=== PATIENT | male | born 1960 | race Caucasian/White ===

== ENCOUNTER → 2021-05-05 09:01 | Outpatient (BNVA) | payer MEDICARE, SELFPAY | PROVIDERS: Family Provider Internal Medicine; PCP Nurse Practitioner; Visit Provider Nurse Practitioner | DX: I10 Essential (primary) hypertension (principal) | CPT/HCPCS: 80053; 80061; 85025 ==

== ENCOUNTER → 2021-06-08 14:29 | Outpatient (BNVA) | payer MEDICARE, SELFPAY | PROVIDERS: Family Provider Internal Medicine; PCP Nurse Practitioner; Visit Provider Nurse Practitioner Family | DX: R11.2 Nausea with vomiting, unspecified (principal) | CPT/HCPCS: 87635 ==

== ENCOUNTER 2021-08-06 14:14 | Emergency (ER) | payer MEDICARE, SELFPAY ==
[2021-08-06 14:42] VITALS: BP 184/96; PULSE 49; RESP 16; TEMP 36.4; O2SAT 98; BMI 26.3
--- NOTE | 2021-08-06 14:53 | ECG_ITS ---
[facility] Test Date: 2021-08-06 Pat Name: Declan Campuzano Department: Room: Gender: Male Vacuum Caster: : 1960 Requested By: Nicola Mathew Order Number: [id number] Ronnie MD: Melissa Cox M.D. Measurements Intervals [place] Rate: 52 P: 12 MD: 171 QRS: 19 QRSD: 110 T: 61 QT: 456 QTc: 428 Interpretive Statements SINUS BRADYCARDIA No previous ECG available for comparison Electronically Signed On 08-07-2021 12:09:23 MANAGER ENGINE by Melissa Cox M.D. [id number]
--- NOTE | 2021-08-06 14:53 | XRR_ITS ---
PROCEDURE INFORMATION: Exam: XR Chest Exam date and time: 08/06/2021 2:53 PM Age: 60 years old Clinical indication: Cough and dyspnea; Additional info: Dyspnea/cough TECHNIQUE: Imaging protocol: XR of the chest. Views: 1 view. COMPARISON: No relevant prior studies available. FINDINGS: Lungs: Curvilinear scarring noted at the peripheral left lung base. No consolidation. Pleural spaces: Unremarkable. No pleural effusion. No pneumothorax. Heart/Mediastinum: Unremarkable. No cardiomegaly. Bones/joints: Unremarkable. XR/XR chest 1V portable [id number] IMPRESSION: No acute findings.
[2021-08-06 15:13] LABS: Basophils % 0.2 %; Eosinophils % 0.1 %; Hematocrit 43.6 % (42.0-52.0); Hemoglobin 14.1 g/dL (11.7-16.6); Lymphocytes # 0.8 10^3/uL (0.8-4.8); Lymphocytes % 7.9 %; Mean Corpuscular HGB Conc 32.3 g/dL (30.0-36.0); Mean Corpuscular Hemoglobin 31.2 pg (28.0-34.0); Mean Corpuscular Volume 96.5 fl (80-94); Mean Platelet Volume 10.3 fL (7.4-10.4); Monocytes # 0.3 10^3/uL (0.2-0.9); Monocytes % 3.5 %; Neutrophils # 8.31 10^3/uL (1.8-7.7); Neutrophils % 88.1 %; Nucleated Red Blood Cells % 0 %; Platelet Count 229 10^3/cmm (130-400); Red Blood Count 4.52 10^6/uL (4.1-5.3); White Blood Count 9.4 10^3/uL (4.0-10.0)
--- NOTE | 2021-08-06 15:35 | CTR_ITS ---
PROCEDURE INFORMATION: Exam: CT Head Without Contrast Exam date and time: 08/06/2021 3:35 PM Age: 60 years old Clinical indication: Headache not specified; Patient HX: Pain behind right eye x 3 weeks; Additional info: Vision changes headache TECHNIQUE: Imaging protocol: Computed tomography of the head without contrast. Radiation optimization: All CT scans at this facility use at least one of these dose optimization techniques: automated exposure control; mA and/or kV adjustment per patient size (includes targeted exams where dose is matched to clinical indication); or iterative reconstruction. COMPARISON: No relevant prior studies available. RADIATION DOSE METRICS: Total DLP (mGy-cm): 975.08 FINDINGS: Brain: Normal. No hemorrhage. Unremarkable white matter. No mass effect. Cerebral ventricles: No ventriculomegaly. Paranasal sinuses: Trace fluid in the left maxillary sinus. The rest of the paranasal sinuses are well pneumatized. Mastoid air cells: Visualized mastoid air cells are well aerated. Orbital cavity: Asymmetric preseptal soft tissue thickening seen the anterior to the right globe. Retro-orbital fat is preserved. Diminutive appearance of the lens of the right globe. Bones/joints: Unremarkable. No acute fracture. Soft tissues: Unremarkable. CT/CT head wo con* [id number] IMPRESSION: 1. No acute intracranial abnormality. 2. Right-sided preseptal cellulitis. The lens of the right globe is also diminutive in appearance. Correlate with any prior surgical procedures/ophthalmology evaluation.
--- NOTE | 2021-08-06 15:35 | ED_ITS ---
HPI - General Adult General: Chief complaint: General Medical Stated complaint: HBP Headache, V, nausia Time Seen by Provider: 08/06/21 14:49 History of Present Illness: 60-year-old male presents emergency room with complaints of elevated blood pressure and headache. Has had this for the last 3 weeks. He is complaining of a headache 10 of 10 at this time. Complaining of chills vomiting exhaustion as well. Is not had any shortness of breath no dysuria urgency or frequency no diarrhea. No hematochezia melena hematemesis coffee-ground emesis no chest pain. Reviewing his medication list he is on valsartan at a maximum dose no other medications. Onset (ago): day(s) Location: head Severity: moderate Relieving factors: none Exacerbating factors: none Associated symptoms: Deny chest pain, confusion, cough, diaphoresis, decreased appetite, dyspnea, fevers/chills, headache(s), malaise, nausea, rash, palp itations, seizures, short of breath, syncope, vomiting or weakness Treatments prior to arrival: none Review of Systems Const: Denies: malaise or diaphoresis ENMT: Denies: throat pain, ear or mastoid pain, nasal discharge or nasal congestion Card: Denies: chest pain, palpitations or syncope Resp: Denies: dyspnea GI: Denies: nausea or vomiting : Denies: flank pain, dysuria, urinary frequency or urinary urgency Skin/Breast: Denies: rash Neuro: Denies: headache(s) or confusion PFSH ED PFSH: Medical History Essential hypertension History of cigarette smoking History of COVID-19 2019 History of [place] spotted fever 2019 Hyperlipidemia, mixed Situational anxiety Tobacco dependence due to chewing tobacco Surgical History History of colonoscopy over ten years ago History of oral surgery all teeth removed Family History Mother Dementia Stroke Sister Diabetes Hypertension Cancer Brother Diabetes Father Cancer Denies family history of CAD (coronary artery disease) Social History Second hand smoke exposure: No Smoking risk assessment/counseling performed?: No Alcohol intake: current Alcohol intake frequency: few times a week Desire information about alcohol rehabilitation?: No Counseling given: No Desire information about substance/drug rehabilitation?: No Counseling given: No Adopted: No Caregiver/support person: No Lives independently: Yes Household members: spouse Housing: House Marital status: Number of children: 0 service: No Current occupational status: disabled Pets and animals: Yes Pets & animals: dog(s) History of recent travel: No Current gender identity: Male Physical Exam Const: COMMON NORMALS: no acute distress GENERAL APPEARANCE: cooperative and comfortable ORIENTATION/CONSCIOUSNESS: Yes awake, Yes oriented to person, Yes oriented to place and Yes oriented to time HENMT: COMMON NORMALS: normocephalic, atraumatic and hearing grossly normal bilaterally HEAD & SCALP: normocephalic and atraumatic OTHER: Moderate swelling around the righteye with some mild erythema tearing of the eye the eye is red and inflamed. Per the patient history he is blind in that eye. He has not been able to see from that eye for approximately 10 years. Neck/C-Spine: COMMON NORMALS: no JVD Resp: COMMON NORMALS: normal respiratory effort, No retractions, No use of accessory muscles and clear to auscultation bilaterally AUSCULTATION: clear to auscultation bilaterally Cardio: COMMON NORMALS: no JVD, regular rate, regular rhythm and No murmurs present (Cardio) RATE: regular rate RHYTHM: regular rhythm GI: COMMON NORMALS: Soft to palpation and No hepatosplenomegaly present AUSCULTATION: Yes normoactive bowel sounds PALPATION: Yes Soft to palpation, No Tenderness to palpation present (GI), No Guarding due to palpation present (GI) and Yes No hepatosplenomegaly present Extremity: COMMON NORMALS: normal to inspection, capillary refill normal, no clubbing, cyanosis or edema, no calf tenderness and no pedal edema Neuro: SENSORIUM/ORIENTATION: Yes oriented to person, Yes oriented to place and Yes oriented to time Skin: COMMON NORMALS: no rashes or lesions noted GENERAL SKIN EXAM: no rashes or lesions noted Course Vital Signs: Vital signs: Vital Signs Temperature 97.6 F 08/06/21 14:42 Pulse Rate 66 08/06/21 18:16 Respiratory Rate 14 08/06/21 18:16 Blood Pressure 145/57 08/06/21 18:16 Pulse Oximetry 97 08/06/21 18:16 MDM - General Adult Medical Decision Making CT shows preseptal cellulitis see below blood pressure improved patient is matt elam. He was unusually bradycardic when he first arrived with a heart rate down to the 40s at times. We will discharge him home on amlodipine for his blood pressure. He did have a little preseptal cellulitis which we will treat with Bactrim he is having a significant pain so also send him home with some hydrocodone Case management set up a 48-hour Holter monitor follow-up with primary care doctor early next week. Labs and imaging reviewed see the notes Medical Records I reviewed the patient's medical records. Lab Data : 08/06/21 15:06 08/06/21 15:06 Radiology Impressions Chest X-Ray 08/06/21 14:53 IMPRESSION: No acute findings. Head CT 08/06/21 15:35 IMPRESSION: 1. No acute intracranial abnormality. 2. Right-sided preseptal cellulitis. The lens of the right globe is also diminutive in appearance. Correlate with any prior surgical procedures/ophthalmology evaluation. Laboratory Results WBC 9.4 10^3/uL (4.0-10.0) 08/06/21 15:06 RBC 4.52 10^6/uL (4.1-5.3) 08/06/21 15:06 Hgb 14.1 g/dL (11.7-16.6) 08/06/21 15:06 Hct 43.6 % (42.0-52.0) 08/06/21 15:06 MCV 96.5 fl (80-94) H 08/06/21 15:06 MCH 31.2 pg (28.0-34.0) 08/06/21 15:06 MCHC 32.3 g/dL (30.0-36.0) 08/06/21 15:06 RDW 13.0 % (12.1-15.1) 08/06/21 15:06 Plt Count 229 10^3/cmm (130-400) 08/06/21 15:06 MPV 10.3 fL (7.4-10.4) 08/06/21 15:06 Neut % (Auto) 88.1 % 08/06/21 15:06 Lymph % (Auto) 7.9 % 08/06/21 15:06 Prentiss % (Auto) 3.5 % 08/06/21 15:06 Eos % (Auto) 0.1 % 08/06/21 15:06 Baso % (Auto) 0.2 % 08/06/21 15:06 Neut # (Auto) 8.31 10^3/uL (1.8-7.7) H 08/06/21 15:06 Lymph # (Auto) 0.8 10^3/uL (0.8-4.8) 08/06/21 15:06 Prentiss # (Auto) 0.3 10^3/uL (0.2-0.9) 08/06/21 15:06 Eos # (Auto) 0.0 10^3/uL (0.0-0.8) 08/06/21 15:06 Baso # (Auto) 0.0 10^3/uL (0.0-0.1) 08/06/21 15:06 Nucleated RBC % (auto) 0 % 08/06/21 15:06 Nucleated RBCs # 0.0 /100WBC 08/06/21 15:06 Sodium 135 mmol/L (136-145) L 08/06/21 15:06 Potassium 4.2 mmol/L (3.5-5.1) 08/06/21 15:06 Chloride 99 mmol/L (98-107) 08/06/21 15:06 Carbon Dioxide 26 mmol/L (22-29) 08/06/21 15:06 Anion Gap 14.2 (5-19) 08/06/21 15:06 BUN 8 mg/dL (8-23) 08/06/21 15:06 Creatinine 0.6 mg/dL (0.7-1.2) L 08/06/21 15:06 GFR Calculation 137.0 mL/min (90-130) H 08/06/21 15:06 Glucose 118 mg/dL (65-115) H 08/06/21 15:06 Calculated Osmolality 279 mOsm/kg (285-295) L 08/06/21 15:06 Calcium 8.3 mg/dL (8.5-10.5) L 08/06/21 15:06 Total Bilirubin 0.5 mg/dL (0.15-1.2) 08/06/21 15:06 AST 13 U/L (0-40) 08/06/21 15:06 ALT 13 U/L (0-41) 08/06/21 15:06 Alkaline Phosphatase 62 IU/L (40-130) 08/06/21 15:06 Total Protein 6.8 g/dL (6.6-8.7) 08/06/21 15:06 Albumin 4.3 g/dL (3.5-5.2) 08/06/21 15:06 Globulin 2.5 g/dL (1.3-4.6) 08/06/21 15:06 Urine Color Straw (Yellow) 08/06/21 15:51 Urine Appearance Clear (CLEAR) 08/06/21 15:51 Urine pH 8 (5-7) H 08/06/21 15:51 Ur Specific [place] 1.005 (1.005-1.030) 08/06/21 15:51 Urine Protein Neg (Negative) 08/06/21 15:51 Urine Glucose (UA) Trace (Normal) H 08/06/21 15:51 Urine Ketones 1+ (Negative) H 08/06/21 15:51 Urine Blood Neg (Negative) 08/06/21 15:51 Urine Nitrate Negative (Negative) 08/06/21 15:51 Urine Bilirubin Neg (Negative) 08/06/21 15:51 Prot Sulfosalicylic Acd Negative (Negative) 08/06/21 15:51 Urine Urobilinogen Norm mg/dL (Negative) 08/06/21 15:51 Ur Leukocyte Esterase Negative (Negative) 08/06/21 15:51 Discharge Plan Discharge Patient Disposition: Home Clinical Impression: Preseptal cellulitis of right eye, Essential hypertension Condition: Stable Prescriptions: New amlodipine 10 mg tablet 10 mg PO DAILY Qty: 30 0RF Bactrim DS 800-160 mg tablet 1 tab PO BID 7 Days Qty: 14 0RF hydrocodone-acetaminophen 5-325 mg tablet 1 tab PO Q6H PRN (Reason: pain) Qty: 15 0RF No Action escitalopram oxalate [Lexapro] 10 mg tablet 10 mg PO DAILY Qty: 30 0RF rosuvastatin [Crestor] 5 mg tablet 5 mg PO DAILY Qty: 90 0RF pantoprazole [Protonix] 40 mg tablet,delayed release (DR/EC) 40 mg PO DAILY Qty: 90 0RF valsartan [Diovan] 320 mg tablet 320 mg PO DAILY Qty: 90 0RF Rx Instructions: Dose increase aspirin 81 mg Tablet,Chewable 81 mg PO DAILY 0RF Discharge Orders: Discharge ED (Routine); Ordered 08/06/21 Ordered By: Nicola Davila Referrals: Scott Herr, [facility] [Primary Care Provider] - Discharge Diet: Usual diet Discharge Activity: Limit activity as instructed Patient Instructions: Opioid Safety Activity Restrictions/Additional Instructions: Follow-up with your primary care doctor within a week. Coding Level of Care Code ED Associate Professor Of Literacy for Elis Claire
[2021-08-06 15:37] LABS: Alanine Aminotransferase 13 U/L (0-41); Albumin Level 4.3 g/dL (3.5-5.2); Alkaline Phosphatase 62 IU/L (40-130); Anion Gap 14.2 (5-19); Aspartate Amino Transferase 13 U/L (0-40); Blood Urea Nitrogen 8 mg/dL (8-23); Calcium 8.3 mg/dL (8.5-10.5); Carbon Dioxide 26 mmol/L (22-29); Chloride 99 mmol/L (98-107); Creatinine Clr Calc Pharmacy 158.2092; Globulin 2.5 g/dL (1.3-4.6); Glucose 118 mg/dL (65-115); Osmolality Calculated 279 mOsm/kg (285-295); Potassium 4.2 mmol/L (3.5-5.1); Sodium 135 mmol/L (136-145); Total Bilirubin 0.5 mg/dL (0.15-1.2); Total Protein 6.8 g/dL (6.6-8.7)
[2021-08-06 15:53] VITALS: BP 157/89; PULSE 60; RESP 16; O2SAT 96
[2021-08-06] MEDS: amlodipine 10 mg Tablet PO (15:56)
[2021-08-06] MEDS: hyDRALAzine 20 mg/mL INJ 1 mL IVP (15:56)
[2021-08-06 15:59] LABS: Add Urine Microscopic? NO; Charge for UA Resulting for Rev
[2021-08-06 16:25] LABS: Bilirubin Urine Neg (Negative); Blood Urine Neg (Negative); Glucose Urine UA Trace (Normal); Ketones Urine 1+ (Negative); Leukocyte Esterase Urine Negative (Negative); Nitrate Urine Negative (Negative); Protein Urine Neg (Negative); Specific Gravity, Urine 1.005 (1.005-1.030); Sulfosalicylic Acid Urine Negative (Negative); Urine Appearance Clear (CLEAR); Urine Color Straw (Yellow); Urobilinogen Urine Norm (Negative); pH Urine 8 (5-7)
[2021-08-06] MEDS: morphine 4 mg/mL SDV 1 mL IVP (16:57)
[2021-08-06 16:59] VITALS: BP 133/80; PULSE 76; O2SAT 95
[2021-08-06 17:02] VITALS: BP 133/80; PULSE 71; RESP 16; O2SAT 97
[2021-08-06] MEDS: promethazine 25 mg/mL SDV 1 mL IM (17:07)
[2021-08-06] MEDS: metoclopramide 5 mg/mL SDV 2 mL 10 MG IVP (18:06)
[2021-08-06 18:13] VITALS: BP 147/74; PULSE 69; O2SAT 95
[2021-08-06 18:16] VITALS: BP 145/57; PULSE 66; RESP 14; O2SAT 97
== END 2021-08-06 18:17 | disposition home or self-care (01) ==
PROVIDERS: Emergency Provider Family Medicine; PCP Nurse Practitioner
DX: L03.213 Periorbital cellulitis (principal); I10 Essential (primary) hypertension; Z79.82 Long term (current) use of aspirin; E78.2 Mixed hyperlipidemia
CPT/HCPCS: 70450; 71045; 80053; 81003; 85025; 93005; 96372; 96374; 96375; 99284; J0360; J2270; J2550; J2765

== ENCOUNTER → 2021-11-09 08:09 | Outpatient (BNVA) | payer MEDICARE, SELFPAY | PROVIDERS: PCP Nurse Practitioner; Visit Provider Nurse Practitioner | DX: I10 Essential (primary) hypertension (principal) | CPT/HCPCS: 80048 ==

== ENCOUNTER → 2022-02-27 15:27 | Outpatient (BNVA) | payer MEDICARE, SELFPAY | PROVIDERS: PCP Nurse Practitioner; Visit Provider Nurse Practitioner | DX: K21.9 Gastro-esophageal reflux disease without esophagitis (principal); I10 Essential (primary) hypertension; E78.2 Mixed hyperlipidemia | CPT/HCPCS: 80053; 80061; 85025 ==

== ENCOUNTER → 2022-08-28 08:07 | Outpatient (BNVA) | payer MEDICARE, SELFPAY | PROVIDERS: PCP Nurse Practitioner; Visit Provider Nurse Practitioner | DX: I10 Essential (primary) hypertension (principal); Z12.5 Encounter for screening for malignant neoplasm of prostate | CPT/HCPCS: 80053; 80061; G0103 ==

== ENCOUNTER → 2023-02-22 08:42 | Outpatient (BNVA) | payer MEDICARE, SELFPAY | PROVIDERS: PCP Nurse Practitioner; Visit Provider Nurse Practitioner | DX: I10 Essential (primary) hypertension (principal); K21.9 Gastro-esophageal reflux disease without esophagitis; E78.2 Mixed hyperlipidemia | CPT/HCPCS: 80053; 80061 ==

== ENCOUNTER → 2023-08-09 08:19 | Outpatient (BNVA) | payer MEDICARE, SELFPAY | PROVIDERS: PCP Nurse Practitioner; Visit Provider Nurse Practitioner | DX: I10 Essential (primary) hypertension (principal); E78.2 Mixed hyperlipidemia | CPT/HCPCS: 80053; 80061 ==

== ENCOUNTER → 2024-01-24 08:19 | Outpatient (BNVA) | payer MEDICARE, SELFPAY | PROVIDERS: PCP Nurse Practitioner; Visit Provider Nurse Practitioner | DX: Z12.5 Encounter for screening for malignant neoplasm of prostate (principal); I10 Essential (primary) hypertension; E78.2 Mixed hyperlipidemia | CPT/HCPCS: 80053; 80061; G0103 ==

== ENCOUNTER → 2024-07-10 08:23 | Outpatient (BNVA) | payer MEDICARE, SELFPAY | PROVIDERS: PCP Nurse Practitioner; Visit Provider Nurse Practitioner | DX: E78.2 Mixed hyperlipidemia (principal); R20.2 Paresthesia of skin | CPT/HCPCS: 80053; 80061; 82607; 85025 ==

== ENCOUNTER → 2024-11-25 10:09 | Outpatient (BNVA) | payer MEDICARE, SELFPAY | PROVIDERS: PCP Nurse Practitioner; Visit Provider Nurse Practitioner | DX: Z12.5 Encounter for screening for malignant neoplasm of prostate (principal); I10 Essential (primary) hypertension | CPT/HCPCS: 80053; G0103 ==

== ENCOUNTER → 2024-12-03 08:53 | Outpatient (BNVA) | payer MEDICARE, SELFPAY | PROVIDERS: PCP Nurse Practitioner; Visit Provider Nurse Practitioner | DX: R73.9 Hyperglycemia, unspecified (principal) | CPT/HCPCS: 83036 ==

== ENCOUNTER → 2025-04-07 09:13 | Outpatient (BNVA) | payer MEDICARE, SELFPAY | PROVIDERS: PCP Nurse Practitioner; Visit Provider Nurse Practitioner | DX: I10 Essential (primary) hypertension (principal) | CPT/HCPCS: 80053; 80061 ==